=== PATIENT | female | born 1990 | race Caucasian/White ===

== ENCOUNTER 2017-08-03 10:27 | Emergency (ER) | payer SELFPAY ==
[2017-08-03 10:44] VITALS: BP 144/88
--- NOTE | 2017-08-03 10:53 | EDM.PDOC ---
ED HPI GENERAL MEDICAL PROBLEM - General Chief Complaint: ENT Problem Stated Complaint: DENTAL COMPLAINT Time Seen by Provider: 08/03/17 10:50 Source of Information: Reports: Patient, Family (spouse) History Limitations: Reports: No Limitations - History of Present Illness INITIAL COMMENTS - FREE TEXT/NARRATIVE: 27-year-old female presents to the ED with severe dental pain right lower molar. She reports that about 4 days ago she was just eating in the tooth broke. She states she has had previous dental work done on that tooth. Over the last 48 hours she developed increasing pain and now constant severe throbbing pain which kept her awake all night. Pain radiates up to her right ear and down into her along the mandible. Patient is traveling back to [place] on with her who is also present. She will therefore see dental care in [place]. Onset: Gradual Onset Date: 08/01/17 (Fractured the tooth by biting down on food 4 days ago.) Duration: Day(s): Location: Reports: Face (Right lower molar dental pain.) Quality: Reports: Ache, Throbbing Severity: Severe (Current pain is 910.) Improves with: Reports: None Worsens with: Reports: Eating (Eating exposure to cool air.) Context: Denies: Activity, Exercise, Sick Contact, Trauma, Other Associated Symptoms: Reports: No Other Symptoms Treatments LEASE ANALYST: Reports: Acetaminophen. Denies: NSAIDS (Allergic to all NSAIDs. ) Right Lower Tooth/Teeth Pain Score (Numeric/FACES): 8 - Related Data Allergies Allergy/AdvReac Type Severity Reaction Status Date / Time naproxen Allergy Rash Verified 08/03/17 10:44 Home Meds: Home Meds Amoxicillin/Clavulanate K [Augmentin 500-125 MG] 1 tab PO Q12H #20 tablet [Rx] oxyCODONE HCl/Acetaminophen [Percocet 5-325 mg Tablet] 1 - 2 each PO Q4H PRN # 20 tablet 08/03/17 [Rx] Past Medical History HEENT History: Reports: Other (See Below) Other HEENT History: multiple dental issues in the past Gastrointestinal History: Reports: Cholelithiasis Musculoskeletal History: Reports: Other (See Below) - Past Surgical History GI Surgical History: Reports: Cholecystectomy Social & Family History - Tobacco Use Smoking Status *Q: Never Smoker - Caffeine Use Caffeine Use: Reports: None - Recreational Drug Use Recreational Drug Use: No - Living Situation & Occupation Living situation: Reports: Occupation: Unemployed ED ROS ENT - Review of Systems Review Of Systems: See Below Constitutional: Reports: Malaise, Weakness, Fatigue (From not sleeping). Denies : Fever, Chills HEENT: Reports: Dental Pain, Ear Pain (From referred pain from dental pain.) Respiratory: Reports: No Symptoms (Right lower molar tooth.) Cardiovascular: Reports: No Symptoms Endocrine: Reports: Fatigue GI/Abdominal: Reports: No Symptoms : Reports: No Symptoms Musculoskeletal: Reports: No Symptoms Skin: Reports: No Symptoms Neurological: Reports: No Symptoms Psychiatric: Reports: No Symptoms Hematologic/Lymphatic: Reports: No Symptoms Immunologic: Reports: Seasonal Allergy ED EXAM, ENT - Physical Exam Exam: See Below Exam Limited By: No Limitations General Appearance: Alert, WD/WN, Mild Distress Ears: Normal TMs Mouth/Throat: Normal Oropharynx, Dental Abcess (The right lower second molar tooth is badly decayed and fractured with loss approximately 30% of the anterior crown down to the pulp space. The gingiva margin around it is slightly erythematous and swollen without any obvious abscess.), Dental Tenderness ( Severe right lower second molar tooth.), Other (Tenderness along the right mandible and) Head: Atraumatic ( side of her face.), Normocephalic Neck: Normal Inspection, Supple, Non-Tender, Full Range of Motion Course - Vital Signs Last Recorded V/S: Last Vital Signs Temp 35.9 C 08/03/17 10:40 Pulse 81 08/03/17 10:40 Resp 18 08/03/17 10:40 BP 144/88 H 08/03/17 10:40 Pulse Ox 100 08/03/17 10:40 - Radiology Interpretation Free Text/Narrative:: 27-year-old female presents the ED with dental pain after the tooth spontaneously fractured bed due to bad decay 4 days ago. Appears to have developed secondary infection in the tooth. Treatment will be Augmentin 500 mg by mouth twice daily for the next 10 days to clear up infection Percocet 5/3/25 milligram tablets 20 one or 2 every 4-6 hours needed for pain relief. Will be following up with dentist when she gets to [place]. Departure - Departure Time of Disposition: 10:50 Disposition: Home, Self-Care 01 Condition: Fair Clinical Impression: Dental abscess - Discharge Information Prescriptions: Amoxicillin/Clavulanate K [Augmentin 500-125 MG] 1 tab PO Q12H #20 tablet oxyCODONE HCl/Acetaminophen [Percocet 5-325 mg Tablet] 1 - 2 each PO Q4H PRN # 20 tablet PRN Reason: pain relief. Referrals: PCP,None [Primary Care Provider] - Forms: ED Department Discharge Additional Instructions: Evaluation the emergency room this morning in regards to severe dental pain right lower second molar tooth. Tooth is been previously decayed and field and recently fractured with loss of the filling. You've lost partially 30% of the tooth The dental pulp space is exposed. It is now become secondarily infected. Treatment is Augmentin 500 mg twice daily for the next 10 days to clear up infection. Since you are allergic to all NSAIDs can only take Tylenol 650 mg every 4-6 hours and Percocet 5/3/25 milligram tablet 1 or 2 every 4-6 hours for pain relief. Follow-up with dentist as soon as able as the tooth will have to be extracted otherwise it will become reinfected shortly after the antibiotics are done.
== END 2017-08-03 11:06 | disposition home or self-care (01) ==
LOC: JD.ED 10:27
DX: K04.7 Periapical abscess without sinus (principal); Z88.6 Allergy status to analgesic agent
CPT/HCPCS: 99283